=== PATIENT | male | born 1965 | race Caucasian/White ===

== ENCOUNTER 2020-12-01 08:54 | Emergency (ER) | payer MEDICARE | END 2020-12-01 12:19 | disposition home or self-care (01) | LOC: ERS 08:54 | DX: Z43.1 Encounter for attention to gastrostomy (principal); K21.9 Gastro-esophageal reflux disease without esophagitis; I10 Essential (primary) hypertension; Z79.899 Other long term (current) drug therapy; Z86.73 Personal history of transient ischemic attack (TIA), and cerebral infarction without residual deficits | CPT/HCPCS: 74018 ==

== ENCOUNTER 2020-12-02 14:10 | Emergency (ER) | payer MEDICARE | END 2020-12-02 17:25 | LOC: ERS 14:10 | DX: Z46.59 Encounter for fitting and adjustment of other gastrointestinal appliance and device (principal) | CPT/HCPCS: 43762 ==

== ENCOUNTER 2021-01-27 10:19 | Emergency (ER) | payer MEDICARE | END 2021-01-27 12:09 | disposition home or self-care (01) | LOC: ERS 10:19 | DX: Z43.1 Encounter for attention to gastrostomy (principal); K21.9 Gastro-esophageal reflux disease without esophagitis | CPT/HCPCS: 99283 ==

== ENCOUNTER 2021-02-13 10:05 | Emergency (ER) | payer MEDICARE | END 2021-02-13 10:25 | LOC: ERS 10:05 | DX: Z43.1 Encounter for attention to gastrostomy (principal); E55.9 Vitamin D deficiency, unspecified; I25.2 Old myocardial infarction; G47.00 Insomnia, unspecified; K21.9 Gastro-esophageal reflux disease without esophagitis | CPT/HCPCS: 43762; 74018 ==

== ENCOUNTER 2021-03-26 21:11 | Emergency (ER) | payer MEDICARE | END 2021-03-26 23:09 | LOC: ERS 21:11 | DX: K94.23 Gastrostomy malfunction (principal); G47.00 Insomnia, unspecified; K21.9 Gastro-esophageal reflux disease without esophagitis; I10 Essential (primary) hypertension; Z79.899 Other long term (current) drug therapy | CPT/HCPCS: 43762; 74018 ==

== ENCOUNTER 2021-07-14 09:54 | Emergency (ER) | payer MEDICARE | END 2021-07-14 11:32 | disposition home or self-care (01) | LOC: ERS 09:54 | DX: Z43.1 Encounter for attention to gastrostomy (principal); K21.9 Gastro-esophageal reflux disease without esophagitis; I10 Essential (primary) hypertension; Z86.73 Personal history of transient ischemic attack (TIA), and cerebral infarction without residual deficits; Z79.899 Other long term (current) drug therapy | CPT/HCPCS: 43762 ==

== ENCOUNTER → 2023-12-17 | Day surgery (SDC) | payer MEDICARE ==
[~2023-12-17] MED LIST: Lidocaine 1% PF 5 ML VIAL ONE; Sodium Bicarbonate 2.5 MEQ/5 ML SDV ONE
== END ==
LOC: SPEC 08:31
PROVIDERS: ATTEND Family Medicine
PROC: 05HY33Z Insertion of Infusion Device into Upper Vein, Percutaneous Approach (ICD-10-PCS; principal; 2023-12-17)
DX: T82.898A Other specified complication of vascular prosthetic devices, implants and grafts, initial encounter (principal); Y83.9 Surgical procedure, unspecified as the cause of abnormal reaction of the patient, or of later complication, without mention of misadventure at the time of the procedure
CPT/HCPCS: 36569; 76942; 77001; C1751

== ENCOUNTER → 2023-12-17 | Day surgery (SDC) | payer MEDICARE | LOC: ER/OP 09:50 | PROVIDERS: ATTEND Family Medicine | PROC: 05HY33Z Insertion of Infusion Device into Upper Vein, Percutaneous Approach (ICD-10-PCS; principal; 2023-12-17) | DX: T82.398A Other mechanical complication of other vascular grafts, initial encounter (principal); Y83.9 Surgical procedure, unspecified as the cause of abnormal reaction of the patient, or of later complication, without mention of misadventure at the time of the procedure ==